=== PATIENT | female | born 1955 | race Native Hawaiian/Other Pacific Islander ===

== ENCOUNTER 2020-06-08 11:18 | Outpatient (CLI) | payer OTHER | END 2020-06-08 19:18 | disposition home or self-care (01) | LOC: RAD 11:18 | DX: Z01.818 Encounter for other preprocedural examination (principal) ==

== ENCOUNTER 2020-06-10 10:45 | Outpatient (CLI) | payer OTHER ==
[2020-06-10 11:47] LABS: PARTIAL THROMBOPLASTIN TIME 30.4 SECONDS (24.5-33.6)
== END 2020-06-10 20:30 | disposition home or self-care (01) ==
LOC: LABW 10:45
PROVIDERS: Internal Medicine
DX: Z01.818 Encounter for other preprocedural examination (principal); I10 Essential (primary) hypertension; R39.81 Functional urinary incontinence; Z79.899 Other long term (current) drug therapy; Z51.81 Encounter for therapeutic drug level monitoring
CPT/HCPCS: 36415; 81000; 85610; 85730; 87086; 87088; 93005